=== PATIENT | male | born 1970 | race Caucasian/White ===

== ENCOUNTER → 2022-06-01 | Outpatient (CLI) | payer OTHER | LOC: RAD 10:03 → MRI 10:03 | DX: M51.26 Other intervertebral disc displacement, lumbar region (principal); M51.36 Other intervertebral disc degeneration, lumbar region; M48.061 Spinal stenosis, lumbar region without neurogenic claudication | CPT/HCPCS: 72148 ==

== ENCOUNTER → 2022-06-01 | Outpatient (CLI) | payer OTHER | LOC: US 09:30 → MRI 10:45 | DX: M54.50 Low back pain, unspecified (principal) | CPT/HCPCS: 76870 ==